=== PATIENT | female | born 1990 | race African-American/Black ===

== ENCOUNTER 2016-05-30 10:43 | Emergency (ER) | payer MEDICAID ==
[~2016-05-30] VITALS: Ht 170.2 cm; Wt 70.0 kg
[~2016-05-30 10:43] MED LIST: ALBU8I INH; NAPR-576 PO; PROM6.257 PO; ZITH250T PO
[2016-05-30 10:45] VITALS: BP 130/59; PULSE 88; RESP 20; TEMP 98.3; O2SAT 100
[2016-05-30] MEDS ORDERED: PERI0.126 SWISH-SPIT (11:20)
[2016-05-30] MEDS ORDERED: MAGICADU2 SWISH-SPIT (11:20)
[2016-05-30] MEDS ORDERED: AMOX500C PO (11:20)
--- NOTE | 2016-05-30 11:21 | PD ---
HPI Chief Complaint: Oral / Dental Pain or Problem Time Seen by Provider: 11:18 Travel History International Travel<30 days: No Contact w/Intl Traveler<30days: No Traveled to known affect area: No History of Present Illness HPI 26-year-old female, 8 weeks , presents to the emergency Department with complaint of right upper tooth pain since last night. Reports eating a piece of bread with butter on it last night and her tooth "crumbled." During her last she reports a tooth to her right lower jaw "crumbled." Denies facial edema, erythema. Pain radiates to her right ear. Worse with eating, drinking, and palpation. Denies fever, chills, nausea, vomiting. Denies nasal congestion, cough, sore throat. Has taken Tylenol with no relief of pain. No known allergies. Denies significant past medical history. Currently taking multivitamins for . No other modifying factors or associated signs and symptoms. PFSH Past Medical History Medical History: Denies Significant Hx ?: : 0 Social History Alcohol Use: No Tobacco Use: No Substance Use: No Allergies-Medications (Allergen,Severity, Reaction): Coded Allergies: No Known Allergies (Verified , 09/07/14) Reported Meds & Prescriptions Reported Meds & Active Scripts Active Peridex Liq (Chlorhexidine Gluconate (Mouth) Liq) 0.12% Soln 15 Ml SWISH-SPIT BID 10 Days Magic Mouthwash Adult Liq (Multi-Ingredient Mouthwash/Gargle) 120 Ml Susp 5 Ml SWISH-SPIT Q3HR PRN Each 5mL contains: Nystatin 200,000units, Diphenhydramine 4.25mg, Viscous Lidocaine 10mg, Montoya syrup 0.8 mL Amoxicillin 500 Mg Cap 500 Mg PO BID 10 Days Ventolin Hfa (Albuterol Sulfate) 8 Gm Aero 2 Puff INH Q4 PRN * SHAKE WELL BEFORE USE * Promethazine P6.25 - 6.25-10 mg/5 ml Ml 5 Ml PO Q6H PRN Naproxen 500 Mg Tab 500 Mg PO BID Zithromax Z-Galindo (Azithromycin) 250 Mg Tab 250 Mg PO DIRECTED 500 MG (2 TABLETS) PO ON DAY 1, THEN 250 MG (1 TABLET) PO ON DAYS 2 TO 5. Review of Systems Except as stated in HPI: all other systems reviewed are Neg Physical Exam Narrative GENERAL: Well-nourished, well-developed female patient, in no acute distress; afebrile, nontoxic-appearing SKIN: Warm and dry. HEAD: Atraumatic. Normocephalic. No facial edema, erythema, tenderness on palpation. No lymphadenopathy. EYES: Pupils equal and round. No scleral icterus. No injection or drainage. ENT: Mucosa pink and moist. Airway patent. MOUTH: Mucous membranes moist, no lesions, tongue and gums appear normal. Right upper tooth #4 is broken down to the gumline; area is tender to touch; gingiva is without erythema, edema, drainage or obvious abscess noted. Right lower tooth #30 is also broken down to the gumline; there is no erythema, edema , drainage or obvious abscess noted; area is tender to palpation. NECK: Trachea midline. No lymphadenopathy. CARDIOVASCULAR: Regular rate. RESPIRATORY: No accessory muscle use. GASTROINTESTINAL: Flat. MUSCULOSKELETAL: No obvious deformities. No clubbing. No cyanosis. No edema. NEUROLOGICAL: Awake and alert. Oriented 3. No obvious cranial nerve deficits. Motor grossly within normal limits. Normal speech. PSYCHIATRIC: Appropriate mood and affect; insight and judgment normal. Data Data Last Documented VS Vital Signs Date Time Temp Pulse Resp B/P Pulse Ox O2 Delivery O2 Flow Rate FiO2 05/30/16 10:45 98.3 88 20 130/59 100 Room Air MDM Medical Decision Making Medical Screen Exam Complete: Yes Emergency Medical Condition: Yes Medical Record Reviewed: Yes Differential Diagnosis Dentalgia, nontraumatic broken tooth, dental abscess, exposed dental root, gingivitis, dental caries Narrative Course 26-year-old female, 8 weeks , physical exam consistent with nontraumatic broken teeth to teeth #4 and #30. Tooth #30 is an old broken tooth. Tooth #4 occurred last night. Afebrile and the ear. Denies fever, chills, nausea, vomiting. No facial edema or erythema. Emergency dental information sheet provided. Amoxicillin, Magic mouthwash, Peridex mouth rinse prescribed for home. Instructed patient to take Tylenol as directed and as needed for pain. Instructed patient to follow up with dentist and she verbalized understanding and agreement for treatment plan. Patient is medically cleared and stable for discharge. Discussed reasons to return to the emergency department. Instructed patient to follow up with primary care provider. Patient agrees with treatment plan. The patients vital signs are stable and the patient is stable for outpatient follow-up and treatment. Patient discharged home, stable and in no acute distress. Diagnosis Primary Impression: Dentalgia Additional Impression: Broken or cracked tooth, nontraumatic Referrals: Dentist Primary Care Physician Patient Instructions: Acute Dental Trauma (ED), Dental Abscess (ED), Dental Caries (ED), General Instructions, Toothache (ED) Departure Forms: Tests/Procedures, Work Release Enter return to work date: May 31, 2016 Additional Instructions: Complete full course of antibiotics Tylenol as directed and as needed to reduce pain and inflammation Use Magic mouthwash rinse as directed and as needed to decrease pain Use Peridex as directed for oral hygiene Warm compresses to the affected area Follow-up with dentist Follow-up with primary care provider Return to emergency department immediately with worsening of symptoms Med/Other Pt SpecificInfo: Prescription(s) given Scripts Chlorhexidine Gluconate (Mouth) Liq (Peridex Liq)0.12% Soln15 Ml SWISH-SPIT BID 10 Days Ref 0 Prov:Renetta Fuentes 05/30/16 Apgalbvh-Pxpccvogfodthdg-Nluapyewv Liq (Magic Mouthwash Adult Liq)120 Ml Susp5 Ml SWISH-SPIT Q3HR PRN (PAIN SCALE 1 TO 10) #120 ML Ref 0 Each 5mL contains: Nystatin 200,000units, Diphenhydramine 4.25mg, Viscous Lidocaine 10mg, Montoya syrup 0.8 mL Prov:Renetta Fuentes 05/30/16 Amoxicillin 500 Mg Esn998 Mg PO BID 10 Days Ref 0 Prov:Renetta Fuentes 05/30/16 Disposition: 01 DISCHARGE HOME Condition: Stable Renetta Fuentes May 30, 2016 11:20
== END 2016-05-30 11:39 | disposition home or self-care (01) ==
LOC: NEPB 10:43
DX: S02.5XXA Fracture of tooth (traumatic), initial encounter for closed fracture (principal)
CPT/HCPCS: 99282

== ENCOUNTER 2016-07-10 08:51 | Emergency (ER) | payer MEDICAID ==
[~2016-07-10 08:51] MED LIST changes: +AMOX500C PO; +MAGICADU2 SWISH-SPIT; +PERI0.126 SWISH-SPIT
--- NOTE | 2016-07-10 09:41 | PD ---
HPI Chief Complaint Patient fell off a stool approximately one hour ago Date Seen: Jul 10, 2016 Time Seen: 09:37 Travel History International Travel<30 Days: No Contact w/Intl Traveler<30Days: No Known Affected Area: No History of Present Illness HPI Patient is 26-year-old who is at 13 weeks gestation today who standing on a 3ft barstool and fell off onto her left side and shoulder. Denies any abdominal trauma and does not think that she hit her head that she is not completely sure. She feels sore on the left side but does not feel like any of her extremities were fractured and does not complain of any extremity pain. Patient sees [facility] for her OB care and an ultrasound there 3 weeks ago which gave her a due date of January 14, 2017 Para: 1 : 2 Last Menstrual Period: Jul 10, 2016 (DIMPLE January 14 2017) History Past Medical History Medical History: Denies Significant Hx Obstetric History Obstetric History Spontaneous vaginal delivery Past Surgical History Surgical History: No Previous Surgery Family History Family History: Negative Social History Alcohol Use: No Tobacco Use: No Substance Abuse: No Allergies-Medications (Allergen,Severity, Reaction): Coded Allergies: No Known Allergies (Verified , 09/07/14) Home Meds Active Scripts Chlorhexidine Gluconate (Mouth) Liq (Peridex Liq)0.12% Soln15 Ml SWISH-SPIT BID 10 Days Ref 0 Prov:Renetta Fuentes 05/30/16 Vxzyjnge-Ealcebwojdwyruv-Ydssjzgil Liq (Magic Mouthwash Adult Liq)120 Ml Susp5 Ml SWISH-SPIT Q3HR PRN (PAIN SCALE 1 TO 10) #120 ML Ref 0 Each 5mL contains: Nystatin 200,000units, Diphenhydramine 4.25mg, Viscous Lidocaine 10mg, Montyoa syrup 0.8 mL Prov:Renetta Fuentes 05/30/16 Amoxicillin 500 Mg Klu066 Mg PO BID 10 Days Ref 0 Prov:Renetta Fuentes 05/30/16 Albuterol Sulfate 8 GM Inhaler (Ventolin Hfa)8 Gm Aero2 Puff INH Q4 PRN (COUGH) #1 BOX * SHAKE WELL BEFORE USE * Prov:Courtney Kahn MD 09/07/14 Promethazine W/Codeine (Phenergan W/Codeine)6.25-10 mg/5 ml Ml5 Ml PO Q6H PRN ( COUGH) #100 ML Prov:Courtney Kahn MD 09/07/14 Naproxen 500 Mg Mxb226 Mg PO BID #20 TAB Prov:Courtney Kahn MD 09/07/14 Azithromycin (Zithromax Z-Galindo)250 Mg Gay215 Mg PO DIRECTED #6 TAB 500 MG (2 TABLETS) PO ON DAY 1, THEN 250 MG (1 TABLET) PO ON DAYS 2 TO 5. Prov:Courtney Kahn MD 09/07/14 Review of Systems Except as stated in HPI: all other systems reviewed are Neg Physical Exam Narrative GENERAL: Well-nourished, well-developed patient. SKIN: Warm and dry. HEAD: Normocephalic and atraumatic. EYES: No scleral icterus. No injection or drainage. ENT: No nasal drainage noted. Mucous membranes pink. Airway patent. NECK: Supple, trachea midline. No JVD. CARDIOVASCULAR: Regular rate and rhythm without murmurs, gallops, or rubs. RESPIRATORY: Breath sounds equal bilaterally. No accessory muscle use. BREASTS: Bilateral exam showed no masses , no retractions, no nipple discharge. ABDOMEN/GI: Abdomen soft, non-tender, bowel sounds present, no rebound, no guarding Gravid to 12 weeks size Fundal Height: [-] GENITOURINARY: External Genitalia: intact and normal in appearance FHT's: 150 by handheld Doppler EXTREMITIES: No cyanosis or edema. BACK: Nontender without obvious deformity. No CVA tenderness. NEUROLOGICAL: Awake and alert. Motor and sensory grossly within normal limits. Five out of 5 muscle strength in all muscle groups. Normal speech. Data Data Vital Signs Reviewed: Yes [facility] Medical Record Reviewed: No Plan Patient at only 13 weeks gestation with good heart tones by Doppler. No obvious trauma to her person at this time. Patient would like to be evaluated in the emergency department rather than being discharged with Tylenol as needed. Diagnosis Diagnosis: Primary Impression: Fall (on) (from) other stairs and steps, initial encounter Additional Impression: 13 weeks gestation of Disposition: 01 DISCHARGE HOME Amberly Payne MD Jul 10, 2016 09:41
[2016-07-10] MEDS ORDERED: PREN29TA PO (10:53)
== END 2016-07-10 09:45 | disposition home or self-care (01) ==
LOC: HOBED 08:51
DX: S49.92XA Unspecified injury of left shoulder and upper arm, initial encounter (principal); W07.XXXA Fall from chair, initial encounter; Z3A.13 13 weeks gestation of pregnancy
CPT/HCPCS: 99283

== ENCOUNTER 2016-07-10 10:14 | Emergency (ER) | payer MEDICAID ==
[~2016-07-10] VITALS: Ht 170.2 cm; Wt 71.0 kg
[2016-07-10 10:33] VITALS: BP 119/61; PULSE 92; RESP 20; TEMP 98; O2SAT 99
[2016-07-10] MEDS ORDERED: PREN29TA PO (10:53)
--- NOTE | 2016-07-10 10:55 | PD ---
HPI Chief Complaint: Fall Time Seen by Provider: 10:49 Travel History International Travel<30 days: No Contact w/Intl Traveler<30days: No Traveled to known affect area: No History of Present Illness HPI Patient is a 26-year-old female who presents the emergency department with complaint of neck and back pain after a fall. Patient was attempting to get kgvf-tpo-pkaswj down from counter, climbing on a barstool when it slipped. Patient fell landing on her left side. She fell from approximately counter height, 3 feet. Patient denies head injury, LOC. She notes pain to the left side of the neck and left low back. She was seen in our OB emergency department just prior to my evaluation has patient is 14 weeks and was complaining of some left-sided abdominal pain. Her heart tones are normal. She has not had any vaginal bleeding, spotting since the accident. Her main complaint at this time is neck pain. She has not administered anything in the OB emergency department. She was cleared by them and then discharged on here for further evaluation. [facility] Past Medical History Medical History: Denies Significant Hx Hx Anticoagulant Therapy: No Cardiovascular Problems: No Chemotherapy: No Cerebrovascular Accident: No Diabetes: No Diminished Hearing: No Respiratory: No ?: LMP: 14 weeks : 0 Past Surgical History Surgical History: No Previous Surgery Social History Alcohol Use: No Tobacco Use: No Substance Use: No Allergies-Medications (Allergen,Severity, Reaction): Coded Allergies: No Known Allergies (Verified , 07/10/16) Reported Meds & Prescriptions Reported Meds & Active Scripts Active Reported Plus Iron 29-1 mg ( Vit-Iron Carbonyl) 1 Tab Tab 1 Tab PO DAILY Review of Systems Except as stated in HPI: all other systems reviewed are Neg Physical Exam Narrative GENERAL: Well-appearing female in no acute distress SKIN: Warm and dry. HEAD: Atraumatic. Normocephalic. EYES: Pupils equal and round. No scleral icterus. No injection or drainage. ENT: No nasal bleeding or discharge. Mucous membranes pink and moist. NECK: Supple without midline tenderness to palpation. Left-sided cervical tenderness extending down into the trapezius. CARDIOVASCULAR: Regular rate and rhythm. RESPIRATORY: No accessory muscle use. GASTROINTESTINAL: Abdomen soft, non-tender, nondistended. Hepatic and splenic margins not palpable. Uterus gravid below the umbilicus MUSCULOSKELETAL: No midline tenderness to palpation of the thoracic or lumbar spine. Left-sided paralumbar muscle tenderness without palpable spasm. 5 out of 5 strength with normal gait. NEUROLOGICAL: Awake and alert. No obvious cranial nerve deficits. Motor grossly within normal limits. Normal speech. PSYCHIATRIC: Appropriate mood and affect; insight and judgment normal. Data Data Last Documented VS Vital Signs Date Time Temp Pulse Resp B/P Pulse Ox O2 Delivery O2 Flow Rate FiO2 07/10/16 10:51 79 18 100 Room Air 07/10/16 10:33 98.0 119/61 Orders Acetaminophen (Tylenol) (07/10/16 11:00) [facility] Medical Decision Making Medical Screen Exam Complete: Yes Emergency Medical Condition: Yes Medical Record Reviewed: Yes Differential Diagnosis 26-year-old female here with complaint of neck and back pain after a fall. Exam is consistent with cervical/lumbar strain. She does not have any midline tenderness to warrant imaging. Patient is incidentally approximate 14 weeks , and was seen in the OB [facility] evaluated by them with regard to possible -related trauma. Narrative Course Patient reassured. Given Tylenol for pain, encouraged to use this as needed at home. Use ice and heat. Diagnosis Primary Impression: Cervical strain Qualified Code: S16.1XXA - Cervical strain, initial encounter Additional Impressions: Lumbar strain Qualified Code: S39.012A - Lumbar strain, initial encounter Fall Qualified Code: W19.XXXA - Fall, initial encounter Referrals: Primary Care Physician as needed Additional Instructions: Tylenol as needed for pain. Ice the affected area 20 minutes at a time 3-4 times daily. Med/Other Pt SpecificInfo: No Change to Meds Disposition: 01 DISCHARGE HOME Condition: Stable Myrna Guy MD Jul 10, 2016 10:55
[2016-07-10] MEDS ORDERED: ACETAMINOPHEN 500 MG CPLT PO ONE (11:00)
[2016-07-10 12:04] VITALS: BP 121/65; PULSE 89; RESP 20; O2SAT 99
== END 2016-07-10 12:47 | disposition home or self-care (01) ==
LOC: NEPA 10:14
DX: S16.1XXA Strain of muscle, fascia and tendon at neck level, initial encounter (principal); S39.012A Strain of muscle, fascia and tendon of lower back, initial encounter; W07.XXXA Fall from chair, initial encounter; Y93.89 Activity, other specified
CPT/HCPCS: 99283